=== PATIENT | female | born 1955 | race African-American/Black ===

== ENCOUNTER 2017-03-01 12:57 | Outpatient (CLI) | payer BC ==
[~2017-03-01 12:57] MED LIST: HYDR25TA4 PO
== END 2017-03-01 19:42 | disposition home or self-care (01) ==
LOC: SMA 12:57
PROVIDERS: ATTEND Family Medicine
DX: R92.8 Other abnormal and inconclusive findings on diagnostic imaging of breast (principal); Z85.3 Personal history of malignant neoplasm of breast
CPT/HCPCS: 76641; G0204

== ENCOUNTER 2017-08-01 11:12 | Outpatient (CLI) | payer BC | END 2017-08-01 20:56 | disposition home or self-care (01) | LOC: SUS 11:12 | PROVIDERS: ATTEND Family Medicine | DX: N63.10 Unspecified lump in the right breast, unspecified quadrant (principal); N63.20 Unspecified lump in the left breast, unspecified quadrant; Z85.3 Personal history of malignant neoplasm of breast | CPT/HCPCS: 76641 ==

== ENCOUNTER 2018-03-06 10:04 | Outpatient (CLI) | payer BC | END 2018-03-06 19:15 | disposition home or self-care (01) | LOC: SMA 10:04 | PROVIDERS: ATTEND Physician Assistant Medical | DX: C50.912 Malignant neoplasm of unspecified site of left female breast (principal) | CPT/HCPCS: 76641; 77066 ==

== ENCOUNTER 2018-11-05 13:15 | Outpatient (CLI) | payer OTHER | END 2018-11-05 21:01 | disposition home or self-care (01) | LOC: SMA 13:15 | PROVIDERS: ATTEND Family Medicine | DX: N63.11 Unspecified lump in the right breast, upper outer quadrant (principal); R92.1 Mammographic calcification found on diagnostic imaging of breast; Z85.3 Personal history of malignant neoplasm of breast | CPT/HCPCS: 76641; 77066 ==

== ENCOUNTER 2019-10-01 13:00 | Outpatient (CLI) | payer OTHER | END 2019-10-01 20:27 | disposition home or self-care (01) | LOC: SMA 13:00 | PROVIDERS: ATTEND Family Medicine | DX: C50.912 Malignant neoplasm of unspecified site of left female breast (principal); N63.20 Unspecified lump in the left breast, unspecified quadrant; R92.2 Inconclusive mammogram | CPT/HCPCS: 76641; 77066 ==

== ENCOUNTER 2020-10-26 12:59 | Outpatient (CLI) | payer OTHER | END 2020-10-26 20:29 | disposition home or self-care (01) | LOC: SMA 12:59 | PROVIDERS: ATTEND Family Medicine | DX: R92.2 Inconclusive mammogram (principal); N64.89 Other specified disorders of breast; Z85.3 Personal history of malignant neoplasm of breast | CPT/HCPCS: 77066 ==

== ENCOUNTER 2021-04-14 13:29 | Emergency (ER) | payer OTHER, SELFPAY ==
[~2021-04-14] VITALS: Ht 160 cm; Wt 70.8 kg
[2021-04-14 13:33] VITALS: BP_SYST 144
[2021-04-14 15:38] LABS: BILIRUBIN,URINE NEGATIVE (NEGATIVE); BLOOD, URINE NEGATIVE (NEGATIVE); CLARITY/URINE CLEAR (CLEAR); COLOR,URINE YELLOW (YELLOW); GLUCOSE,URINE NEGATIVE (NEGATIVE); KETONES,URINE NEGATIVE (NEGATIVE); LEUKOCYTE ESTERASE ,URINE NEGATIVE (NEGATIVE); NITRITE, URINE NEGATIVE (NEGATIVE); PH,URINE 6.5 (5.0-8.0); PROTEIN URINE NEGATIVE (NEGATIVE); UROBILINOGEN,URINE 0.2 (0.2-1.0)
[2021-04-14 15:55] LABS: HEMOGLOBIN 12.4 g/dL (12.0-16.0)
[2021-04-14 15:59] LABS: CALCIUM 10.4 mg/dL (8.4-11.0); CREATININE 0.71 mg/dL (0.55-1.30)
[2021-04-14 16:03] LABS: PROTHROMBIN TIME 10.4 SECS (9.5-12.5)
[2021-04-14 16:05] LABS: ALBUMIN 4.3 g/dL (3.4-4.8); TOTAL BILIRUBIN 0.3 mg/dL (0.0-1.0)
[2021-04-14 16:23] LABS: BASOPHILS # (AUTO) 0.1 K/uL (0.0-0.2); EOSINOPHILS # (AUTO) 0.2 K/uL (0.0-0.4); HEMATOCRIT 38.1 % (36-48); LYMPHOCYTES # (AUTO) 2.4 K/uL (1.0-5.5); LYMPHOCYTES % (AUTO) 29.7 % (20.5-51.5); MEAN CORPUSCULAR HEMOGLOBIN 23 pg (27-31); MEAN CORPUSCULAR HGB CONC 32 % (32-36); MEAN CORPUSCULAR VOLUME 71 fL (79.0-98.0); MONOCYTES # (AUTO) 0.5 K/uL (0.0-1.0); MONOCYTES % (AUTO) 5.7 % (1.7-9.3); NEUTROPHILS # (AUTO) 4.9 K/uL (1.8-7.7); NEUTROPHILS % (AUTO) 60.6 % (40.0-70.0); PLATELET COUNT (AUTO) 358 K/uL (130-430); RED BLOOD CELL COUNT(AUTO) 5.38 MIL/uL (4.2-6.2); RED CELL DISTRIBUTION WIDTH 15.2 % (9.0-15.0); WHITE BLOOD COUNT (AUTO) 8.1 K/uL (4.8-10.8)
[2021-04-14 16:41] LABS: POTASSIUM 2.7 mmol/L (3.5-5.1)
[2021-04-14] MEDS ORDERED: POTASSIUM CHLORIDE 20 MEQ/PKT PACKET PO ONE ×2 (16:45→19:00)
[2021-04-14] MEDS ORDERED: ACETAMINOPHEN 325 MG TABLET ONE (16:59)
[2021-04-14] MEDS ORDERED: ACETAMINOPHEN 325 MG TABLET PO ONE (17:00)
[2021-04-14] MEDS ORDERED: POTA8TAB66 PO (18:51)
[2021-04-14 19:07] VITALS: BP_SYST 141
== END 2021-04-14 19:07 | disposition home or self-care (01) ==
LOC: SED 13:29
DX: R07.9 Chest pain, unspecified (principal); I10 Essential (primary) hypertension; F43.9 Reaction to severe stress, unspecified; E87.6 Hypokalemia
CPT/HCPCS: 36415; 71045; 80053; 81003; 84484; 85025; 85610-TC; 93005; 99285

== ENCOUNTER 2021-12-13 10:50 | Outpatient (CLI) | payer OTHER ==
[~2021-12-13 10:50] MED LIST changes: +POTA8TAB66 PO
== END 2021-12-13 20:07 | disposition home or self-care (01) ==
LOC: SMA 10:50
PROVIDERS: ATTEND Family Medicine
DX: Z12.31 Encounter for screening mammogram for malignant neoplasm of breast (principal); N64.89 Other specified disorders of breast
CPT/HCPCS: 77067

== ENCOUNTER 2023-12-17 08:42 | Outpatient (CLI) | payer OTHER | END 2023-12-17 20:45 | disposition home or self-care (01) | LOC: SMA 08:42 | PROVIDERS: ATTEND Physician Assistant Medical | DX: Z12.31 Encounter for screening mammogram for malignant neoplasm of breast (principal) | CPT/HCPCS: 77067 ==